=== PATIENT | male | born 1985 | race Caucasian/White ===

== ENCOUNTER 2021-02-28 22:51 | Emergency (ER) | payer OTHER ==
[2021-03-01] MEDS ORDERED: PERCOCET 5/325 T1 EA PO (02:08)
[2021-03-01] MEDS ORDERED: IBUPROFEN800 MG PO (02:22)
[2021-03-01] MEDS ORDERED: POLYSPORIN OP3.5 GM OS (02:26)
== END 2021-03-01 02:50 | disposition home or self-care (01) ==
LOC: ER1 22:51
DX: S92.002A Unspecified fracture of left calcaneus, initial encounter for closed fracture (principal); W19.XXXA Unspecified fall, initial encounter; Y92.009 Unspecified place in unspecified non-institutional (private) residence as the place of occurrence of the external cause
CPT/HCPCS: 29515; 72125; 72128; 72131; 72170; 73610; 73630; 96374; 99284; J2270